=== PATIENT | male | born 1960 | race Two or more races ===

== ENCOUNTER 2020-11-06 09:40 | Inpatient (IN) | payer MEDICARE, MEDICAID ==
[~2020-11-06] VITALS: Ht 165.1 cm; Wt 68.0 kg
[2020-11-06] MEDS ORDERED: HYDROmorphone HCL 2 MG/ML VL IV ONE (10:15)
[2020-11-06] MEDS ORDERED: cloNIDine HCL 0.1 MG TAB PO ONE (10:30)
[2020-11-06] MEDS ORDERED: cloNIDine HCL 0.1 MG TAB ONE (10:32)
[2020-11-06 10:36] LABS: Basophils # (auto) 0.1 10 ^3/uL (0-0.2); Basophils % (auto) 1.6 % (0.0-2.0); Eosinophils # (auto) 0.1 10 ^3/uL (0-0.8); Eosinophils % (auto) 1.2 % (0.0-7.0); Hematocrit 33.1 % (41.0-53.0); Hemoglobin 10.9 g/dL (13.5-17.5); Lymphocytes # (auto) 0.8 10 ^3/uL (0.4-5.4); Lymphocytes % (auto) 8.8 % (10.0-50.0); Mean Corpuscular Hemoglobin 30.3 pg (28.0-32.0); Mean Corpuscular Volume 91.9 fL (80.0-100.0); Monocytes % (auto) 11.9 % (0.0-12.0); Neutrophils # (auto) 6.6 10 ^3/uL (1.6-8.6); Neutrophils % (auto) 76.5 % (37.0-80.0); Nucleated Red Blood Cells % 0.1 %; Platelet Count (auto) 247 10^3/uL (140-450); Red Cell Distribution Width 15.9 % (11.8-14.3); White Blood Cell 8.6 10^3/uL (4.4-10.8)
[2020-11-06 10:53] LABS: INR 1.03 (0.9-1.15); Partial Thromboplastin Time 23.4 sec (23.0-31.2)
[2020-11-06 10:53] LABS: Potassium 5.3 mmol/L (3.5-5.1)
[2020-11-06 11:02] LABS: Albumin 3.9 g/dL (3.4-5.0); BUN/Creatinine Ratio 5.6; Bilirubin, Total 0.5 mg/dL (0.2-1.0); Calcium 11.1 mg/dL (8.5-10.1); Total Protein 8.2 g/dL (6.4-8.2)
[2020-11-06] MEDS ORDERED: hydrALAZINE HCL 20 MG/ML VL IV ONE (12:30)
[2020-11-06] MEDS ORDERED: IOHEXOL 350 MG/ML 100ML IJ ONE (12:35)
[2020-11-06] MEDS ORDERED: ACETAMINOPHEN 325 MG TAB PO PRN (16:15)
[2020-11-06] MEDS ORDERED: HYDROcodone-ACET 5/325MG TAB PO PRN (16:15)
[2020-11-06] MEDS ORDERED: ONDANSETRON HCL 4 MG/2 ML VIAL IV PRN (16:15)
[2020-11-06] MEDS ORDERED: MORPHINE SULF INJ 2 MG/ML SYRINGE 1ML IV PRN (16:15)
[2020-11-06] MEDS ORDERED: NITROGLYCERIN 0.4 MG SL TAB SL PRN (16:15)
[2020-11-06 17:24] LABS: Phosphorus 4.2 mg/dL (2.5-4.90)
[2020-11-06] MEDS: BUMETANIDE 2.5mg/10ml (0.25 mg/ml) INJ IV SCH (18:42)
[2020-11-06] MEDS: CARVEDILOL 12.5 MG TAB PO SCH (21:42)
[2020-11-06] MEDS ORDERED: NIFEdipine ER 30 MG TAB PO SCH (22:00)
[2020-11-06] MEDS: HYDROmorphone HCL 2 MG/ML VL IV PRN (23:52)
[2020-11-07] VITALS (82 sets, daily range): BP systolic 114–197; BP diastolic 53–103
[2020-11-07] MEDS ORDERED: ENALAPRILAT 1.25 MG/ML-1ML VIAL IV ONE (02:30)
[2020-11-07 05:22] LABS: Basophils # (auto) 0.1 10 ^3/uL (0-0.2); Basophils % (auto) 1.2 % (0.0-2.0); Eosinophils # (auto) 0 10 ^3/uL (0-0.8); Eosinophils % (auto) 0.3 % (0.0-7.0); Hematocrit 32.3 % (41.0-53.0); Hemoglobin 11.1 g/dL (13.5-17.5); Lymphocytes # (auto) 0.8 10 ^3/uL (0.4-5.4); Lymphocytes % (auto) 9.3 % (10.0-50.0); Mean Corpuscular Hemoglobin 32.4 pg (28.0-32.0); Mean Corpuscular Hgb Conc. 34.4 g/dL (32.0-36.0); Monocytes # (auto) 1.4 10 ^3/uL (0-1.3); Monocytes % (auto) 17.2 % (0.0-12.0); Neutrophils # (auto) 6.1 10 ^3/uL (1.6-8.6); Platelet Count (auto) 249 10^3/uL (140-450); Red Blood Cells 3.43 10^6/uL (4.5-5.90); Red Cell Distribution Width 15.9 % (11.8-14.3); White Blood Cell 8.4 10^3/uL (4.4-10.8)
[2020-11-07 05:50] LABS: BUN/Creatinine Ratio 5.9; Calcium 10.8 mg/dL (8.5-10.1); Magnesium 2.9 mg/dL (1.6-2.6); Phosphorus 5.1 mg/dL (2.5-4.90)
[2020-11-07 05:54] LABS: % Iron Saturation 13.9 % (20-55)
[2020-11-07] MEDS: BUMETANIDE 2.5mg/10ml (0.25 mg/ml) INJ IV SCH (05:58)
[2020-11-07 06:25] LABS: Potassium 5.9 mmol/L (3.5-5.1)
[2020-11-07] MEDS ORDERED: SODIUM CHL 0.9% 1000 ML BAG XX ONE (07:00)
[2020-11-07] MEDS: HYDROmorphone HCL 2 MG/ML VL IV PRN ×2 (08:31→17:46)
[2020-11-07] MEDS: CARVEDILOL 12.5 MG TAB PO SCH ×2 (10:00→23:09)
[2020-11-07] MEDS: PANTOPRAZOLE 40 MG/10 ML VIAL INJ IV SCH ×2 (13:30→22:16)
[2020-11-07] MEDS: SUCRALFATE 1 GM/10 ML ORAL SUSP PO SCH ×3 (17:00→22:17)
[2020-11-07] MEDS ORDERED: EPOETIN ALFA-EPBX 4,000 UNIT/ML VIAL SC ONE (21:00)
[2020-11-07] MEDS: hydrALAZINE HCL 25 MG TAB PO SCH (22:17)
[2020-11-07] MEDS: NIFEdipine ER 30 MG TAB PO SCH (22:18)
[2020-11-08] VITALS (53 sets, daily range): BP systolic 96–167; BP diastolic 43–88
[2020-11-08] MEDS: HYDROmorphone HCL 2 MG/ML VL IV PRN ×3 (03:28→17:19)
[2020-11-08] MEDS: hydrALAZINE HCL 25 MG TAB PO SCH ×2 (05:45→14:37)
[2020-11-08] MEDS: SUCRALFATE 1 GM/10 ML ORAL SUSP PO SCH ×3 (06:40→17:20)
[2020-11-08 06:52] LABS: Basophils # (auto) 0.1 10 ^3/uL (0-0.2); Eosinophils # (auto) 0 10 ^3/uL (0-0.8); Eosinophils % (auto) 0.4 % (0.0-7.0); Hematocrit 29.8 % (41.0-53.0); Hemoglobin 10.2 g/dL (13.5-17.5); Lymphocytes # (auto) 0.5 10 ^3/uL (0.4-5.4); Lymphocytes % (auto) 6.2 % (10.0-50.0); Mean Corpuscular Hemoglobin 31.8 pg (28.0-32.0); Mean Corpuscular Hgb Conc. 34.2 g/dL (32.0-36.0); Mean Corpuscular Volume 93.2 fL (80.0-100.0); Monocytes # (auto) 0.8 10 ^3/uL (0-1.3); Monocytes % (auto) 10.8 % (0.0-12.0); Neutrophils # (auto) 6.4 10 ^3/uL (1.6-8.6); Neutrophils % (auto) 81.6 % (37.0-80.0); Nucleated Red Blood Cells % 0.1 %; Platelet Count (auto) 241 10^3/uL (140-450); Red Cell Distribution Width 15.6 % (11.8-14.3); White Blood Cell 7.8 10^3/uL (4.4-10.8)
[2020-11-08] MEDS ORDERED: SODIUM CHL 0.9% 1000 ML BAG XX ONE (07:00)
[2020-11-08 07:09] LABS: Albumin 3.4 g/dL (3.4-5.0); Calcium 9.6 mg/dL (8.5-10.1)
[2020-11-08 07:18] LABS: BUN/Creatinine Ratio 5.1; Bilirubin, Total 0.4 mg/dL (0.2-1.0); Magnesium 2.6 mg/dL (1.6-2.6); Total Protein 7.5 g/dL (6.4-8.2)
[2020-11-08] MEDS: PANTOPRAZOLE 40 MG/10 ML VIAL INJ IV SCH (09:16)
[2020-11-08] MEDS: CARVEDILOL 12.5 MG TAB PO SCH (10:00)
[2020-11-08] MEDS: NIFEdipine ER 30 MG TAB PO SCH (10:00)
[2020-11-08] MEDS ORDERED: LISINOPRIL 20 MG TAB PO SCH (10:00)
[2020-11-08] MEDS ORDERED: EPOETIN ALFA-EPBX 4,000 UNIT/ML VIAL SC ONE (21:00)
== END 2020-11-08 18:51 | disposition left against medical advice (07) | DRG 393 ==
LOC: EDBD 09:40 → ER 09:40 → ICU WEST 16:02 → TELE 23:58 → DOU IN ICU 11-07 01:15
PROVIDERS: ADMIT Nurse Practitioner Acute Care; ATTEND Internal Medicine
PROC: 5A1D70Z Performance of Urinary Filtration, Intermittent, Less than 6 Hours Per Day (ICD-10-PCS; principal; 2020-11-07)
PROC: 5A09357 Assistance with Respiratory Ventilation, Less than 24 Consecutive Hours, Continuous Positive Airway Pressure (ICD-10-PCS; 2020-11-07)
PROC: 05H933Z Insertion of Infusion Device into Right Brachial Vein, Percutaneous Approach (ICD-10-PCS; 2020-11-08)
PROC: B54MZZA Ultrasonography of Right Upper Extremity Veins, Guidance (ICD-10-PCS; 2020-11-08)
PROC: 5A1D70Z Performance of Urinary Filtration, Intermittent, Less than 6 Hours Per Day (ICD-10-PCS; 2020-11-08)
DX: K55.059 Acute (reversible) ischemia of intestine, part and extent unspecified (principal); I21.A1 Myocardial infarction type 2; N18.6 End stage renal disease; G93.41 Metabolic encephalopathy; I50.33 Acute on chronic diastolic (congestive) heart failure; J96.01 Acute respiratory failure with hypoxia; K85.90 Acute pancreatitis without necrosis or infection, unspecified; I71.01 Dissection of thoracic aorta; I16.1 Hypertensive emergency; Q61.3 Polycystic kidney, unspecified; I13.2 Hypertensive heart and chronic kidney disease with heart failure and with stage 5 chronic kidney disease, or end stage renal disease; K55.9 Vascular disorder of intestine, unspecified; K29.70 Gastritis, unspecified, without bleeding; E83.41 Hypermagnesemia; D63.1 Anemia in chronic kidney disease; E87.5 Hyperkalemia; Z20.822 Contact with and (suspected) exposure to COVID-19; E83.52 Hypercalcemia; R73.9 Hyperglycemia, unspecified; K40.20 Bilateral inguinal hernia, without obstruction or gangrene, not specified as recurrent; Z53.29 Procedure and treatment not carried out because of patient's decision for other reasons; E78.5 Hyperlipidemia, unspecified; E66.9 Obesity, unspecified; G47.33 Obstructive sleep apnea (adult) (pediatric); I25.10 Atherosclerotic heart disease of native coronary artery without angina pectoris; Z99.2 Dependence on renal dialysis; Z68.25 Body mass index [BMI] 25.0-25.9, adult
CPT/HCPCS: 36415; 71045; 71275; 74176; 80048; 80053; 80061; 83540; 83550; 83690; 83735; 83880; 84100; 84484; 85025; 85379; 85610; 85730; 87081; 87426; 90935; 93005; 93306; 94660; 96374; 96375; 99291; C9113; G0378; J1642

== ENCOUNTER 2021-03-15 08:40 | Inpatient (IN) | payer MEDICARE, MEDICAID ==
[~2021-03-15] VITALS: Ht 172.7 cm; Wt 74.9 kg
[2021-03-15 09:53] LABS: Basophils # (auto) 0.1 10 ^3/uL (0-0.2); Basophils % (auto) 1.4 % (0.0-2.0); Eosinophils # (auto) 0.1 10 ^3/uL (0-0.8); Eosinophils % (auto) 2.4 % (0.0-7.0); Hematocrit 33.8 % (41.0-53.0); Hemoglobin 11.2 g/dL (13.5-17.5); Lymphocytes # (auto) 0.5 10 ^3/uL (0.4-5.4); Lymphocytes % (auto) 12.6 % (10.0-50.0); Mean Corpuscular Hemoglobin 29.8 pg (28.0-32.0); Mean Corpuscular Volume 90.3 fL (80.0-100.0); Monocytes # (auto) 0.5 10 ^3/uL (0-1.3); Monocytes % (auto) 12.4 % (0.0-12.0); Neutrophils # (auto) 2.9 10 ^3/uL (1.6-8.6); Neutrophils % (auto) 71.2 % (37.0-80.0); Nucleated Red Blood Cells % 0.1 %; Red Blood Cells 3.75 10^6/uL (4.5-5.90)
[2021-03-15 09:58] LABS: BUN/Creatinine Ratio 5.4; Calcium 9.6 mg/dL (8.5-10.1); Magnesium 2.5 mg/dL (1.6-2.6); Potassium 3.3 mmol/L (3.5-5.1)
[2021-03-15] MEDS ORDERED: POTASSIUM EFFERVESENT TAB 25 MEQ PO ONE (11:15)
[2021-03-15 11:38] LABS: INR 1.12 (0.9-1.15)
[2021-03-15] MEDS ORDERED: traMADol HCL 50 MG TAB PO PRN (13:45)
[2021-03-15] MEDS ORDERED: TEMAZEPAM 15 MG CAP PO PRN (13:45)
[2021-03-15] MEDS ORDERED: NITROGLYCERIN 0.4 MG SL TAB SL PRN (13:45)
[2021-03-15] MEDS ORDERED: PROMETHAZINE HCL 25 MG/ML 1ML IV PRN (13:45)
[2021-03-15] MEDS ORDERED: MORPHINE SULFATE INJECTION 2 MG/ML SYRG IV PRN ×2 (13:45)
[2021-03-15] MEDS ORDERED: LABETALOL HCL 5 MG/ML ML 20ML VIAL IV PRN (13:45)
[2021-03-15] MEDS ORDERED: ACETAMINOPHEN 500 MG TAB PO PRN (13:45)
[2021-03-15] MEDS ORDERED: LACTULOSE 20Gm/30ML SOLN PO PRN (13:45)
[2021-03-15] MEDS: SODIUM CHLOR 0.9% PF (SALINE LOCK) 10ML VIAL/SYR IV SCH ×2 (13:59→22:16)
[2021-03-15] MEDS: LORazepam 0.5 MG TAB PO PRN (13:59)
[2021-03-15] MEDS ORDERED: IOHEXOL 350 MG/ML 100ML IJ ONE (15:22)
[2021-03-15 17:00] VITALS: BP 151/83
[2021-03-15 17:56] VITALS: BP 151/83
[2021-03-15] MEDS ORDERED: LOSA-39 PO (18:46)
[2021-03-15] MEDS ORDERED: CALC667C PO ×2 (19:33→19:40)
[2021-03-15] MEDS ORDERED: CARV25TA55 PO (19:35)
[2021-03-15] MEDS ORDERED: CLON0.1T PO (19:41)
[2021-03-15] MEDS ORDERED: ISOS5TAB PO (19:43)
[2021-03-15] MEDS ORDERED: LATA0.0019 EACHEYE (19:43)
[2021-03-15] MEDS ORDERED: NIFE1TAB30 PO (19:44)
[2021-03-15] MEDS ORDERED: HYDR-3682 PO (19:45)
[2021-03-15] MEDS ORDERED: SEVE800T8 PO (19:49)
[2021-03-15] MEDS ORDERED: SEVE800T PO (19:49)
[2021-03-15] MEDS ORDERED: PANT40TA2 PO (19:50)
[2021-03-15] MEDS ORDERED: ALPR0.5T7 PO (19:53)
[2021-03-15 22:00] VITALS: BP 118/54
[2021-03-15] MEDS: METOPROLOL TARTRATE 25 MG TAB PO SCH ×2 (22:00→22:16)
[2021-03-15] MEDS: ATORVASTATIN 20 MG TAB PO SCH (22:16)
[2021-03-15] MEDS: HEPARIN SODIUM (PORCINE) 5000 UNITS/ML 1ML VIAL SC SCH (23:10)
[2021-03-16 05:00] VITALS: BP 182/87
[2021-03-16] MEDS: SODIUM CHLOR 0.9% PF (SALINE LOCK) 10ML VIAL/SYR IV SCH ×3 (05:28→21:57)
[2021-03-16 09:00] VITALS: BP 135/85
[2021-03-16 09:04] LABS: Albumin 2.9 g/dL (3.4-5.0); Calcium 9.4 mg/dL (8.5-10.1); Potassium 4.4 mmol/L (3.5-5.1)
[2021-03-16 09:11] LABS: BUN/Creatinine Ratio 6.1; Bilirubin, Total 0.4 mg/dL (0.2-1.0); Total Protein 7.1 g/dL (6.4-8.2)
[2021-03-16 09:18] LABS: Basophils # (auto) 0 10 ^3/uL (0-0.2); Basophils % (auto) 0.8 % (0.0-2.0); Eosinophils # (auto) 0.1 10 ^3/uL (0-0.8); Eosinophils % (auto) 2.5 % (0.0-7.0); Hematocrit 31.5 % (41.0-53.0); Hemoglobin 10.5 g/dL (13.5-17.5); Lymphocytes # (auto) 0.8 10 ^3/uL (0.4-5.4); Lymphocytes % (auto) 16.8 % (10.0-50.0); Mean Corpuscular Hemoglobin 29.2 pg (28.0-32.0); Mean Corpuscular Hgb Conc. 33.2 g/dL (32.0-36.0); Mean Corpuscular Volume 87.9 fL (80.0-100.0); Monocytes # (auto) 0.9 10 ^3/uL (0-1.3); Monocytes % (auto) 17.9 % (0.0-12.0); Nucleated Red Blood Cells % 0.1 %; Red Blood Cells 3.58 10^6/uL (4.5-5.90); Red Cell Distribution Width 18.2 % (11.8-14.3); White Blood Cell 4.8 10^3/uL (4.4-10.8)
[2021-03-16] MEDS: FUROSEMIDE 40 MG/4 ML VIAL IV SCH (09:25)
[2021-03-16] MEDS: ASPirin 81 mg TAB PO SCH (09:25)
[2021-03-16] MEDS: METOPROLOL TARTRATE 25 MG TAB PO SCH ×2 (09:26→22:01)
[2021-03-16] MEDS: HEPARIN SODIUM (PORCINE) 5000 UNITS/ML 1ML VIAL SC SCH ×2 (09:28→22:01)
[2021-03-16] MEDS ORDERED: ENOXAPARIN SOD 30 MG/0.3 ML SYRINGE SC SCH (10:00)
[2021-03-16 13:00] VITALS: BP 142/66
[2021-03-16] MEDS: LORazepam 0.5 MG TAB PO PRN (16:41)
[2021-03-16 17:00] VITALS: BP_SYST 162; BP_SYST 163; BP_DIAS 116
[2021-03-16] MEDS: hydrALAZINE HCL 20 MG/ML VL IV PRN ×2 (17:50→20:39)
[2021-03-16 22:00] VITALS: BP 197/99
[2021-03-16] MEDS: ATORVASTATIN 20 MG TAB PO SCH (22:01)
[2021-03-17] VITALS (7 sets, daily range): BP systolic 137–190; BP diastolic 71–98
[2021-03-17] MEDS ORDERED: cloNIDine HCL 0.1 MG TAB PO ONE (05:15)
[2021-03-17 05:29] LABS: Basophils # (auto) 0.1 10 ^3/uL (0-0.2); Basophils % (auto) 1.2 % (0.0-2.0); Eosinophils # (auto) 0.2 10 ^3/uL (0-0.8); Eosinophils % (auto) 3.6 % (0.0-7.0); Hematocrit 32.7 % (41.0-53.0); Hemoglobin 10.9 g/dL (13.5-17.5); Lymphocytes # (auto) 0.6 10 ^3/uL (0.4-5.4); Lymphocytes % (auto) 9.4 % (10.0-50.0); Mean Corpuscular Hemoglobin 29.5 pg (28.0-32.0); Mean Corpuscular Hgb Conc. 33.3 g/dL (32.0-36.0); Mean Corpuscular Volume 88.5 fL (80.0-100.0); Monocytes % (auto) 16.2 % (0.0-12.0); Neutrophils # (auto) 4.4 10 ^3/uL (1.6-8.6); Neutrophils % (auto) 69.6 % (37.0-80.0); Nucleated Red Blood Cells % 0.1 %; Red Blood Cells 3.69 10^6/uL (4.5-5.90); Red Cell Distribution Width 18.1 % (11.8-14.3); White Blood Cell 6.4 10^3/uL (4.4-10.8)
[2021-03-17] MEDS: SODIUM CHLOR 0.9% PF (SALINE LOCK) 10ML VIAL/SYR IV SCH ×3 (05:35→21:58)
[2021-03-17 05:55] LABS: Calcium 9.6 mg/dL (8.5-10.1); Potassium 5.3 mmol/L (3.5-5.1)
[2021-03-17 06:01] LABS: BUN/Creatinine Ratio 6.8
[2021-03-17] MEDS: hydrALAZINE HCL 20 MG/ML VL IV PRN ×2 (08:10→15:24)
[2021-03-17] MEDS: METOPROLOL TARTRATE 25 MG TAB PO SCH (10:00)
[2021-03-17] MEDS: ASPirin 81 mg TAB PO SCH (10:00)
[2021-03-17] MEDS ORDERED: CARVEDILOL 12.5 MG TAB PO SCH (10:00)
[2021-03-17] MEDS: HEPARIN SODIUM (PORCINE) 5000 UNITS/ML 1ML VIAL SC SCH ×2 (10:00→21:58)
[2021-03-17] MEDS: FUROSEMIDE 40 MG/4 ML VIAL IV SCH (10:00)
[2021-03-17] MEDS ORDERED: IODIXANOL 320MG/ML 100ML BTL IV ONE (10:04)
[2021-03-17] MEDS ORDERED: LIDOCAINE 2%HCL (LOCAL ANESTH.) INJ 20ML MDV ONE (10:05)
[2021-03-17 10:08] LABS: INR 1.08 (0.9-1.15)
[2021-03-17] MEDS ORDERED: ANGIOMAX 250 MG VIAL IV ONE (10:14)
[2021-03-17] MEDS ORDERED: fentaNYL CITRATE 100 MCG/2 ML VL ONE (10:14)
[2021-03-17] MEDS ORDERED: MIDAZOLAM HCL 2MG/2ML 2ml VIAL (1mg/ml) ONE (10:15)
[2021-03-17] MEDS ORDERED: SODIUM CHL 0.9% 0 ML ONE (10:15)
[2021-03-17] MEDS ORDERED: VERAPAMIL 2.5MG/ML INJ 2ML VIAL IV ONE (10:19)
[2021-03-17] MEDS ORDERED: HEPARIN SODIUM (PORCINE) 5000 UNITS/ML 1ML VIAL ONE (10:19)
[2021-03-17] MEDS ORDERED: LOSARTAN POTASSIUM 50 MG TAB PO ONE (12:30)
[2021-03-17] MEDS ORDERED: hydrALAZINE HCL 20 MG/ML VL IV PRN (12:45)
[2021-03-17] MEDS ORDERED: NIFEdipine ER 30 MG TAB PO ONE (13:15)
[2021-03-17] MEDS ORDERED: cloNIDine 0.3 mg/24hr 7DAY PATCH TD SCH (16:15)
[2021-03-17] MEDS ORDERED: cloNIDine HCL 0.1 MG TAB PO PRN (17:30)
[2021-03-17] MEDS ORDERED: cloNIDine HCL 0.1 MG TAB PO SCH (18:00)
[2021-03-17] MEDS: ATORVASTATIN 20 MG TAB PO SCH (21:58)
[2021-03-17] MEDS: CARVEDILOL 12.5 MG TAB PO SCH (21:59)
[2021-03-17] MEDS: LORazepam 0.5 MG TAB PO PRN (21:59)
[2021-03-18 05:00] VITALS: BP 138/73
[2021-03-18] MEDS: SODIUM CHLOR 0.9% PF (SALINE LOCK) 10ML VIAL/SYR IV SCH ×2 (06:23→13:51)
[2021-03-18] MEDS ORDERED: SODIUM CHL 0.9% 1000 ML BAG XX ONE (07:00)
[2021-03-18 08:00] VITALS: BP 138/73
[2021-03-18] MEDS ORDERED: NIFEdipine ER 30 MG TAB PO SCH (10:00)
[2021-03-18] MEDS ORDERED: LOSARTAN POTASSIUM 50 MG TAB PO SCH (10:00)
[2021-03-18] MEDS: ASPirin 81 mg TAB PO SCH (12:38)
[2021-03-18] MEDS: FUROSEMIDE 40 MG/4 ML VIAL IV SCH (12:38)
[2021-03-18] MEDS: CARVEDILOL 12.5 MG TAB PO SCH (12:39)
[2021-03-18] MEDS: HEPARIN SODIUM (PORCINE) 5000 UNITS/ML 1ML VIAL SC SCH (13:15)
[2021-03-18 13:16] VITALS: BP 164/72
== END 2021-03-18 15:45 | disposition home or self-care (01) | DRG 280 ==
LOC: EDBD 08:40 → EDSEX 08:40 → ER 08:40 → TELE 13:37 → TELE-WESTW 17:48
PROVIDERS: ADMIT Internal Medicine; ATTEND Internal Medicine Geriatric Medicine
PROC: B211YZZ Fluoroscopy of Multiple Coronary Arteries using Other Contrast (ICD-10-PCS; principal; 2021-03-17)
PROC: B215YZZ Fluoroscopy of Left Heart using Other Contrast (ICD-10-PCS; 2021-03-17)
PROC: B310YZZ Fluoroscopy of Thoracic Aorta using Other Contrast (ICD-10-PCS; 2021-03-17)
PROC: 4A023N7 Measurement of Cardiac Sampling and Pressure, Left Heart, Percutaneous Approach (ICD-10-PCS; 2021-03-17)
PROC: 5A1D70Z Performance of Urinary Filtration, Intermittent, Less than 6 Hours Per Day (ICD-10-PCS; 2021-03-18)
DX: I21.4 Non-ST elevation (NSTEMI) myocardial infarction (principal); N18.6 End stage renal disease; I71.01 Dissection of thoracic aorta; I48.20 Chronic atrial fibrillation, unspecified; E87.1 Hypo-osmolality and hyponatremia; I12.0 Hypertensive chronic kidney disease with stage 5 chronic kidney disease or end stage renal disease; Z20.822 Contact with and (suspected) exposure to COVID-19; D63.1 Anemia in chronic kidney disease; E87.6 Hypokalemia; E87.5 Hyperkalemia; I25.110 Atherosclerotic heart disease of native coronary artery with unstable angina pectoris; Z79.899 Other long term (current) drug therapy; Z82.49 Family history of ischemic heart disease and other diseases of the circulatory system; Z99.2 Dependence on renal dialysis
CPT/HCPCS: 36415; 71045; 71275; 75605; 80048; 80053; 80061; 82550; 82962; 83735; 83880; 84443; 84484; 85025; 85379; 85610; 85652; 85730; 86141; 86850; 86900; 86901; 87426; 90935; 93005; 93306; 93458; 99152; 99153; G0378; J2250; Q9967